=== PATIENT | female | born 1975 | race Caucasian/White ===

== ENCOUNTER 2018-07-11 10:34 | Emergency (ER) | payer OTHER ==
[2018-07-11 10:50] VITALS: BMI 25.4
--- NOTE | 2018-07-11 11:05 | PDOC ---
History of Present Illness - General Chief Complaint: Pain, Acute Stated Complaint: ABD PAIN Time Seen by Provider: 07/11/18 10:55 History Source: Patient - History of Present Illness Timing/Duration: other Severity: moderate Associated Symptoms: reports: chest pain. denies: cough, diaphoresis, fever/ chills, nausea/vomiting, shortness of breath Past History - Past Medical History Allergies/Adverse Reactions: Allergies Allergy/AdvReac Type Severity Reaction Status Date / Time No Known Allergies Allergy Verified 07/11/18 10:47 COPD: No HTN: Yes - Surgical History Lung Surgery: No - Immunization History Immunization Up to Date: No - Suicide/Smoking/Psychosocial Hx Smoking History: Never smoked Have you smoked in the past 12 months: No Information on smoking cessation initiated: No Hx Alcohol Use: No Drug/Substance Use Hx: No Review of Systems - Review of Systems Constitutional: No: Chills, Fever Respiratory: No: Cough, Shortness of Breath Cardiac (ROS): Yes: Chest Pain ABD/GI: Yes: Nausea. No: Vomiting, Abdominal cramping Musculoskeletal: Yes: Back Pain. No: Neck Pain *Physical Exam - Vital Signs Last Vital Signs Temp Pulse Resp BP Pulse Ox 98.0 F 74 18 168/87 100 07/11/18 10:47 07/11/18 10:47 07/11/18 10:47 07/11/18 10:47 07/11/18 10:47 - Physical Exam General Appearance: Yes: Appropriately Dressed. No: Apparent Distress HEENT: positive: Normal Voice Neck: positive: Supple Respiratory/Chest: positive: Lungs Clear, Normal Breath Sounds. negative: Respiratory Distress Cardiovascular: positive: Regular Rate, S1, S2 Gastrointestinal/Abdominal: positive: Soft. negative: Tender Musculoskeletal: negative: Vertebral Tenderness Extremity: positive: Normal Inspection Integumentary: positive: Dry, Warm Neurologic: positive: Fully Oriented, Alert, Normal Mood/Affect Moderate Sedation - Procedure Monitoring Vital Signs: Procedure Monitoring Vital Signs Temperature 98.0 F 07/11/18 10:47 Pulse Rate 74 07/11/18 10:47 Respiratory Rate 18 07/11/18 10:47 Blood Pressure 168/87 07/11/18 10:47 O2 Sat by Pulse Oximetry (%) 100 07/11/18 10:47 ED Treatment Course - LABORATORY CBC & Chemistry Diagram: 07/11/18 11:24 07/11/18 11:24 Medical Decision Making - Medical Decision Making 07/11/18 11:03 42 yo F, h/o NIDDM, here w/ upper back pain radiating to L chest x 3 days, describes as "pulsating", constant, worse w/ certain movement. + nausea, no vomiting, sob, diaphoresis, palpitations, leg pain or swelling. No h/o similar pain. No trauma or other inciting factors. See exam Atypical CP Unlikely ACS, dissection and no RF for DVT/PE, possible MSK -ekg -cxr -labs -anticipate dispo if w/u neg 07/11/18 13:54 Labs only remarkable for BG of 319, no gap. Pt reports compliance w/ her metformin. Asymptomatic from a BG standpoint and denies any chest pain at this time. EKG and CXR unremarkable. Trop neg, no need for serial trop given duration of sxs. Pt reports that she currently has no insurance and no PMD. Given f/u at [facility] this week. Reasons to return d/w pt *DC/Admit/Observation/Transfer Diagnosis at time of Disposition: Atypical chest pain, Hyperglycemia - Discharge Dispostion Disposition: HOME Condition at time of disposition: Stable - Referrals - Patient Instructions Printed Discharge Instructions: DI for Atypical Chest Pain, DI for Hyperglycemia -- Adult Additional Instructions: [place] EKG, radiografa de trax y laboratorios greg normales aqu. La causa de bea[place] dolor puede ser muscular, jerzy yogi debe hacer un seguimiento con bea[place] PMD para guillermo evaluacin adicional. Puede intentar emely Tylenol para el dolor segn sea necesario Tu azcar en la isabel era 319 hoy. Contine tomando kev medicamentos, jerzy contine con el seguimiento en [facility] al [phone] esta semana para un mejor control de beavers diabetes Print Language: WELSH - Post Discharge Activity
[2018-07-11 11:34] LABS: BASO % 0.5 % (0-2.0); EOS % 1.4 % (0-4.5); HEMATOCRIT 37.6 % (32.4-45.2); HEMOGLOBIN 13.4 GM/dL (10.7-15.3); MCH 31.5 pg (25.7-33.7); MCHC 35.6 g/dl (32.0-36.0); MEAN CELL VOLUME 88.4 fl (80-96); MEAN PLT VOLUME 8.5 fl (7.5-11.1); MONO % 5.8 % (3.8-10.2); NEUT % 56.3 % (42.8-82.8); PLATELET COUNT 269 K/MM3 (134-434); RBC 4.25 M/mm3 (3.60-5.2); RDW 13.7 % (11.6-15.6); WHITE BLOOD COUNT 9.1 K/mm3 (4.0-10.0)
[2018-07-11 11:42] LABS: URINE APPEARANCE CLEAR; URINE BILIRUBIN NEGATIVE (<2.0 mg/dL); URINE COLOR LTYELLOW; URINE GLUCOSE (UA) 3+ (NEGATIVE); URINE KETONE NEGATIVE (NEGATIVE); URINE LEUK ESTERASE NEGATIVE (NEGATIVE); URINE NITRITE NEGATIVE (NEGATIVE); URINE PROTEIN NEGATIVE (NEGATIVE); URINE UROBILINOGEN NEGATIVE mg/dL (0.2-1.0)
[2018-07-11 12:35] LABS: ALBUMIN 3.6 g/dl (3.4-5.0); ALK PHOS 129 U/L (45-117); ANION GAP 6 MMOL/L (8-16); BILIRUBIN,TOTAL 0.3 mg/dL (0.2-1); BLOOD UREA NITROGEN 11 mg/dL (7-18); CALCIUM 8.6 mg/dL (8.5-10.1); CHLORIDE 104 mmol/L (98-107); CO2 25 mmol/L (21-32); CREATININE 0.7 mg/dL (0.55-1.3); N-TERMINAL BNP 140.8 pg/ml (5-125); POTASSIUM 4.2 mmol/L (3.5-5.1); SGOT/AST 17 U/L (15-37); SGPT/ALT 18 U/L (13-61); SODIUM 135 mmol/L (136-145); TOT PROT 7.3 g/dl (6.4-8.2)
[2018-07-11 12:54] LABS: GLUCOSE,RANDOM 319 mg/dL (74-106)
[2018-07-11 14:43] VITALS: BP 130/59; PULSE 89; TEMP 98.2
--- NOTE | 2018-07-11 14:44 | EKG ---
Test Reason : Blood Pressure : / mmHG Vent. Rate : 070 BPM Atrial Rate : 070 BPM P-R Int : 148 ms QRS Dur : 090 ms QT Int : 392 ms P-R-T Axes : 023 -01 011 degrees QTc Int : 423 ms NORMAL SINUS RHYTHM LOW VOLTAGE QRS BORDERLINE ECG NO PREVIOUS ECGS AVAILABLE Confirmed by TIFFANY FORBES MD ([id number]) on 07/11/2018 2:44:25 PM Referred By: Confirmed By:TIFFANY FORBES MD
== END 2018-07-11 14:43 | disposition home or self-care (01) ==
LOC: JER 10:34
DX: R07.89 Other chest pain (principal); E11.65 Type 2 diabetes mellitus with hyperglycemia; I10 Essential (primary) hypertension
CPT/HCPCS: 36415; 71046-TC-FY; 80053; 81003; 82550; 83880; 84484; 84703; 85025; 93005; 93010; 99282-25

== ENCOUNTER 2018-09-01 09:53 | Emergency (ER) | payer OTHER ==
[2018-09-01 10:08] VITALS: BP 150/83; PULSE 72; TEMP 98.3; BMI 28.2
--- NOTE | 2018-09-01 10:56 | PDOC ---
History of Present Illness - General Chief Complaint: Eye Problem Stated Complaint: PINK EYE Time Seen by Provider: 09/01/18 10:39 History Source: Patient, Software Lead Used (#[id number]) - History of Present Illness Initial Comments: 09/01/18 11:00 Patient with history of diabetes present with complaint of three-day history of nasal congestion and bilateral pinkeye with pain in bilateral eyes which has not been improving with [id number] eyedrops. Patient also reports sinus pains. Patient denies fever, chills, blurry vision or change in vision. Timing/Duration: other (3 days) Past History - Past Medical History Allergies/Adverse Reactions: Allergies Allergy/AdvReac Type Severity Reaction Status Date / Time No Known Allergies Allergy Verified 07/11/18 10:47 Home Medications: Ambulatory Orders metFORMIN HCL [Metformin HCl ER] 1,000 mg PO DAILY 07/11/18 Loratadine 10 mg PO DAILY #10 capsule 09/01/18 Ofloxacin 0.3% Ophth Soln [Ocuflox -] 2 drop OP Q6H 5 Days #1 bottle 09/01/18 Triamcinolone Acetonide [Nasacort] 2 spray NS BID PRN #1 spray 09/01/18 COPD: No HTN: Yes - Surgical History Lung Surgery: No - Immunization History Immunization Up to Date: No - Suicide/Smoking/Psychosocial Hx Smoking History: Never smoked Have you smoked in the past 12 months: No Hx Alcohol Use: No Drug/Substance Use Hx: No Review of Systems - Review of Systems Able to Perform ROS?: Yes Is the patient limited Swiss proficient: No Constitutional: No: Chills, Fever, Malaise, Weakness HEENTM: Yes: Symptoms Reported, See HPI, Eye Pain (b/l eyes), Nose Congestion. No: Blurred Vision, Tearing, Recent change in vision, Double Vision, Cataracts, Ear Pain, Ocular Prothesis, Ear Discharge, Nose Pain, Tinnitus, Nose Bleeding, Hearing Loss, Throat Pain, Throat Swelling, Mouth Pain, Dental Problems, Difficulty Swallowing, Mouth Swelling, Other Respiratory: No: Symptoms reported, See HPI, Cough, Orthopnea, Shortness of Breath, SOB with Exertion, SOB at Rest, Stridor, Wheezing, Productive cough, Hemoptysis, Other Cardiac (ROS): No: Symptoms Reported, See HPI, Chest Pain, Edema, Irregular Heart Rate, Lightheadedness, Palpitations, Syncope, Chest Tightness, Other ABD/GI: No: Constipated, Diarrhea, Nausea, Vomiting, Abdominal cramping Neurological: No: Headache, Numbness, Paresthesia, Dizziness All Other Systems: Reviewed and Negative *Physical Exam - Vital Signs Last Vital Signs Temp Pulse Resp BP Pulse Ox 98.3 F 72 16 150/83 99 09/01/18 10:05 09/01/18 10:05 09/01/18 10:05 09/01/18 10:05 09/01/18 10:05 - Physical Exam Comments: 09/01/18 11:02 GENERAL: Well developed, well nourished. Awake and alert. No acute distress. HEENT: Mildly injected bilateral conjunctivae. Normocephalic, atraumatic. PERRLA , EOMI. Sclera are non-icteric. Moist mucous membranes. Oropharynx is clear. NECK: Supple. Full ROM. CARDIOVASCULAR: Regular rate and rhythm. No murmurs, rubs, or gallops. Distal pulses are 2+ and symmetric. PULMONARY: No evidence of respiratory distress. Lungs clear to auscultation bilaterally. No wheezing, rales or rhonchi. ABDOMINAL: Soft. Non-tender. Non-distended. No rebound or guarding. No organomegaly. Normoactive bowel sounds. MUSCULOSKELETAL Normal range of motion at all joints. SKIN: Warm and dry. Normal capillary refill. No rashes. No jaundice. NEUROLOGICAL: Alert, awake, appropriate. Gait is normal without ataxia. PSYCHIATRIC: Cooperative. Good eye contact. Appropriate mood General Appearance: Yes: Nourished, Appropriately Dressed. No: Apparent Distress Moderate Sedation - Procedure Monitoring Vital Signs: Procedure Monitoring Vital Signs Temperature 98.3 F 09/01/18 10:05 Pulse Rate 72 09/01/18 10:05 Respiratory Rate 16 09/01/18 10:05 Blood Pressure 150/83 09/01/18 10:05 O2 Sat by Pulse Oximetry (%) 99 09/01/18 10:05 Medical Decision Making - Medical Decision Making 09/01/18 11:03 Patient with history of diabetes present with complaint of three-day history of bilateral pinkeye, nasal congestion and sinus pains. Exam significant for mildly injected bilateral conjunctivae are clear. Pupils reflective to light bilateral and equal. Patient also with nasal congestion bilateral. Symptoms likely sinusitis was conjunctivitis. Patient is stable for outpatient management for sinusitis with nasal spray and ofloxacin eyedrops for conjunctivitis with ophthalmology follow-up. *DC/Admit/Observation/Transfer Diagnosis at time of Disposition: Sinusitis Qualifiers: Sinusitis location: unspecified location Chronicity: acute Recurrence: non- recurrent Qualified Code(s): J01.90 - Acute sinusitis, unspecified Conjunctivitis Qualifiers: Conjunctivitis type: acute Acute conjunctivitis type: unspecified Laterality: bilateral Qualified Code(s): H10.33 - Unspecified acute conjunctivitis, bilateral - Discharge Dispostion Disposition: HOME Condition at time of disposition: Stable Decision to Admit order: No - Prescriptions Prescriptions: Loratadine 10 mg PO DAILY #10 capsule Ofloxacin 0.3% Ophth Soln [Ocuflox -] 2 drop OP Q6H 5 Days #1 bottle Triamcinolone Acetonide [Nasacort] 2 spray NS BID PRN #1 spray PRN Reason: nasal congestion - Referrals Referrals: Kelechi Grace MD [Staff Physician] - - Patient Instructions Printed Discharge Instructions: Sinusitis, Conjunctivitis Additional Instructions: Take medications as prescribed. Increase fluid intake. Follow-up referred ophthalmology if no improvement in 3 days. Print Language: TURKMEN - Post Discharge Activity
== END 2018-09-01 11:01 | disposition home or self-care (01) ==
LOC: JERFT 09:53
DX: J01.90 Acute sinusitis, unspecified (principal); H10.33 Unspecified acute conjunctivitis, bilateral
CPT/HCPCS: 99281-25

== ENCOUNTER 2019-08-24 16:40 | Emergency (ER) | payer OTHER ==
[2019-08-24] MEDS ORDERED: IBUPROFEN 600 MG TABLET (FP) PO ONE ×2 (16:53→17:00)
[2019-08-24 17:02] VITALS: BP 173/90; PULSE 89; TEMP 98.5; BMI 38.7
[2019-08-24 17:02] LABS: EPITHELIAL CELLS FEW /hpf
--- NOTE | 2019-08-24 17:08 | PDOC ---
Attending Attestation - Resident Resident Name: Karol Lockett - ED Attending Attestation I have performed the following: I have examined & evaluated the patient, The case was reviewed & discussed with the resident, I agree w/resident's findings & plan, Exceptions are as noted - HPI HPI: 08/24/19 18:02 Pain in the left rib cage, posterior, lateral, and anterior costal margins. No respiratory or cardiac symptoms. No injury. No recent URI/cough - Physicial Exam PE: 08/24/19 18:03 PE: Normal vital signs Tenderness along the costal margin, left lower chest, and left flank. No omid CVAT. No abdominal tenderness - Medical Decision Making 08/24/19 18:04 Assessment: EKG, chest x-ray, CBC, chemistries, cardiac enzymes negative. Most likely musculoskeletal/costochondritis Plan: Symptomatic treatment with anti-inflammatories and muscle relaxant, rest and ice, follow-up primary physician, return to ER if symptoms worsen. Fully ambulatory in no distress at discharge
[2019-08-24 17:30] LABS: BASO % 0.7 % (0-2.0); EOS % 2.1 % (0-4.5); HEMATOCRIT 36.8 % (32.4-45.2); HEMOGLOBIN 12.5 GM/dl (10.7-15.3); LYMPH % 37.9 % (8-40); MCH 30.9 pg (25.7-33.7); MCHC 33.9 g/dl (32.0-36.0); MEAN CELL VOLUME 91.3 fl (80-96); MEAN PLT VOLUME 8.9 fl (7.5-11.1); NEUT % 54.3 % (42.8-82.8); PLATELET COUNT 256 K/MM3 (134-434); RBC 4.03 M/mm3 (3.60-5.2); RDW 12.6 % (11.6-15.6); WHITE BLOOD COUNT 9.3 K/mm3 (4.0-10.8)
--- NOTE | 2019-08-24 17:34 | PDOC ---
History of Present Illness - General Chief Complaint: Pain, Acute Stated Complaint: FLANK PAIN Time Seen by Provider: 08/24/19 16:41 History Source: Patient Exam Limitations: No Limitations - History of Present Illness Initial Comments: 08/24/19 17:34 43y F with PMH of DM, HTN presenting to ER with complaints of L sided rib/flank pain that started 3 days ago. Pt states that she woke up with the pain. The pain is worse with palpation and movement. Also endorses pain with deep inspiration. She also states that she has been feeling more short of breath when exerting herself. Denies injuries, history of [place], smoking, recent travel, recent surgeries, leg swelling, orthopnea, headache, recent illnesses, cold like symptoms, neck pain, rash. She took 1 Advil yesterday and the day before which helped but the pain returned. PMD: none PSH: none PMH: see hpi Meds: see med rec Allergies: nkda Past History - Past Medical History Allergies/Adverse Reactions: Allergies Allergy/AdvReac Type Severity Reaction Status Date / Time No Known Allergies Allergy Verified 07/11/18 10:47 Home Medications: Ambulatory Orders metFORMIN HCL [Metformin HCl ER] 1,000 mg PO BID 07/11/18 Cyclobenzaprine HCl [Flexeril -] 10 mg PO HS #7 tablet 08/24/19 Naproxen 500 mg PO BID #14 tablet 08/24/19 COPD: No Diabetes: Yes HTN: Yes - Surgical History Lung Surgery: No - Immunization History Immunization Up to Date: No - Psycho Social/Smoking Cessation Hx Smoking History: Never smoked Have you smoked in the past 12 months: No Hx Alcohol Use: No Drug/Substance Use Hx: No Review of Systems - Review of Systems Constitutional: No: Symptoms Reported HEENTM: No: Symptoms Reported Respiratory: Yes: See HPI Cardiac (ROS): Yes: See HPI ABD/GI: No: Symptoms Reported : No: Symptoms Reported Musculoskeletal: Yes: See HPI Integumentary: No: Symptoms Reported Neurological: No: Symptoms reported *Physical Exam - Vital Signs Last Vital Signs Temp Pulse Resp BP Pulse Ox 98.5 F 89 16 173/90 H 100 08/24/19 16:41 08/24/19 16:41 08/24/19 16:41 08/24/19 16:41 08/24/19 16:41 - Physical Exam General Appearance: Yes: Nourished, Appropriately Dressed. No: Apparent Distress HEENT: positive: EOMI, ANNAMARIE, Normal ENT Inspection Neck: positive: Trachea midline, Supple. negative: Lymphadenopathy (R), Lymphadenopathy (L) Respiratory/Chest: positive: Chest Tender, Lungs Clear. negative: Accessory Muscle Use, Crackles, Rales, Rhonchi, Stridor, Wheezing Cardiovascular: positive: Regular Rhythm, Regular Rate, S1, S2 Gastrointestinal/Abdominal: positive: Normal Bowel Sounds, Soft. negative: Tender Musculoskeletal: positive: Normal Inspection. negative: CVA Tenderness, Muscle Spasm, Vertebral Tenderness Extremity: positive: Normal Capillary Refill. negative: Tender, Pedal Edema, Swelling Integumentary: positive: Normal Color, Dry, Warm. negative: Rash Neurologic: positive: mandrel press hand II-XII NML intact, Fully Oriented, Alert, Normal Mood/ Affect, Normal Response, Motor Strength 5/5 ED Treatment Course - LABORATORY CBC & Chemistry Diagram: 08/24/19 17:05 08/24/19 17:05 - ADDITIONAL ORDERS Additional order review: Laboratory Results 08/24/19 16:45 Urine Color Yellow Urine Appearance Clear Urine pH 5.0 Urine Protein 1+ H Urine Glucose (UA) 2+ H Urine Ketones Trace Urine Blood 3+ H Urine Nitrite Negative Urine Bilirubin Negative Urine Urobilinogen 0.2 Ur Leukocyte Esterase Negative Urine RBC >100 Urine WBC 0-2 Ur Transition Epith Cell Few Urine Bacteria Few 08/24/19 17:05 RBC 4.03 MCV 91.3 MCHC 33.9 RDW 12.6 MPV 8.9 Neutrophils % 54.3 Lymphocytes % 37.9 Monocytes % 5.0 Eosinophils % 2.1 Basophils % 0.7 - RADIOLOGY Radiology Studies Ordered: Category Date Time Status CHEST PA & LAT [RAD] Stat Radiology 08/24/19 17:00 Taken - Medications Given in the ED: ED Medications Discontinued Medications Generic Name Dose Route Start Last Admin Trade Name Freq PRN Reason Stop Dose Admin Ibuprofen 600 mg 08/24/19 16:53 08/24/19 17:01 Motrin - PO 08/24/19 16:54 600 mg ONCE ONE Administration Medical Decision Making - Medical Decision Making 08/24/19 18:54 43y F with DM presenting to ED with chest pain. pain is reproducible with extremity movements and with palpation. suspect costochondritis. -cbc, cmp, trop, ekg, cxr ekg: nsr, normal intervals, normal axis. labs wnl, negative trop. ibuprofen given. rx for naproxen, flexeril referral to [facility] given. dispo home Discharge - Discharge Information Problems reviewed: Yes Clinical Impression/Diagnosis: Costochondral pain Condition: Good Disposition: HOME - Admission No - Additional Discharge Information Prescriptions: Cyclobenzaprine HCl [Flexeril -] 10 mg PO HS #7 tablet Naproxen 500 mg PO BID #14 tablet - Follow up/Referral Referrals: [facility] [place] [facility] [place] [Provider Group] - Patient Discharge Instructions Patient Printed Discharge Instructions: DI for Costochondritis Additional Instructions: Usted fue visto en la jewels de emergencias por dolor en el pecho / espalda superior. La radiografa es normal y el anlisis de isabel es normal. Citlalli es el dolor musculoesqueltico ms probable. Se envi a [place] farmacia guillermo receta para el naproxeno (MARCELLO) y un relajante muscular. El relajante muscular puede hacerte sentir cansado, solo tmalo antes de acostarte. A continuacin se proporciona guillermo derivacin a guillermo clnica de medicina interna. Llame para hacer guillermo tariq. Regrese a la jewels de emergencias si tiene un empeoramiento del dolor, dificultad para respirar o si se desarrolla algn sntoma nuevo o preocupante. Ron You were seen in the ER for chest/upper back pain. The xray is normal and the blood work is normal. This is most likley musculoskeletal pain. A prescripton for Naproxen (NSAID) and a muscle relaxant was sent to your pharmacy. The muscle relaxant can make you feel tired, only take at bedtime. A referral to an internal medicine clinic is provided below. Call to make an appointment. Come back to the ER if you have worsening pain, have difficulty breathing or if any new or concerning symptom develops. Thank you Print Language: CITIZEN OF [place] - Post Discharge Activity
[2019-08-24 17:36] LABS: ALBUMIN 3.6 g/dl (3.4-5.0); BILIRUBIN,TOTAL 0.3 mg/dl (0.2-1); CALCIUM 8.6 mg/dl (8.5-10); CREATININE 0.9 mg/dl (0.55-1.3); POTASSIUM 3.9 mmol/L (3.5-5.1); TOT PROT 6.9 g/dl (6.4-8.2)
--- NOTE | 2019-08-25 10:47 | EKG ---
Test Reason : Blood Pressure : / mmHG Vent. Rate : 079 BPM Atrial Rate : 079 BPM P-R Int : 140 ms QRS Dur : 086 ms QT Int : 372 ms P-R-T Axes : 034 -03 000 degrees QTc Int : 426 ms NORMAL SINUS RHYTHM WHEN COMPARED WITH ECG OF 11-JUL-2018 12:05, NO SIGNIFICANT CHANGE WAS FOUND Confirmed by SUNNI BRAGG MD ([id number]) on 08/25/2019 10:47:15 AM Referred By: DR TORREZ Confirmed By:SUNNI BRAGG MD
== END 2019-08-24 18:22 | disposition home or self-care (01) ==
LOC: FER 16:40
DX: R07.82 Intercostal pain (principal); I10 Essential (primary) hypertension; E11.9 Type 2 diabetes mellitus without complications; Z79.84 Long term (current) use of oral hypoglycemic drugs
CPT/HCPCS: 36415; 71046-TC-FY; 80053; 81003; 81015; 84484; 85025; 87086; 93005; 99285-25

== ENCOUNTER 2020-05-21 15:41 | Emergency (ER) | payer OTHER ==
[2020-05-21 15:57] VITALS: BP 151/90; PULSE 81; TEMP 98.6; BMI 38.4
[2020-05-21] MEDS ORDERED: IBUPROFEN 400 MG TABLET (FP) PO ONE ×2 (16:27→16:38)
== END 2020-05-21 17:50 | disposition home or self-care (01) ==
LOC: FER 15:41
DX: E11.65 Type 2 diabetes mellitus with hyperglycemia (principal); M25.512 Pain in left shoulder
CPT/HCPCS: 73030-TC-LT-FY; 82962; 93005; 99285-25

== ENCOUNTER 2021-02-20 10:18 | Emergency (ER) | payer OTHER ==
[2021-02-20 10:33] VITALS: BP 162/93; PULSE 80; TEMP 98.6; BMI 36.3
== END 2021-02-20 11:00 | disposition home or self-care (01) ==
LOC: FER 10:18
DX: L03.116 Cellulitis of left lower limb (principal)
CPT/HCPCS: 99283-25

== ENCOUNTER 2021-06-06 18:35 | Emergency (ER) | payer OTHER ==
[2021-06-06 18:48] VITALS: BP 160/95; PULSE 84; TEMP 97.8; BMI 37.0
[2021-06-06 19:37] LABS: HCG,QUALITATIVE URINE Negative
[2021-06-06] MEDS ORDERED: SODIUM CHLORIDE 1,000 ML IV STA (20:00)
[2021-06-06] MEDS ORDERED: ACETAMINOPHEN 1000 MG/100 ML VIAL IVPB ONE (20:01)
[2021-06-06] MEDS ORDERED: ACETAMINOPHEN INJECTION 100 ML IVPB ONE (20:11)
[2021-06-06 20:35] LABS: ALBUMIN 3.7 g/dl (3.4-5.0); BILIRUBIN,TOTAL 0.5 mg/dl (0.2-1); CALCIUM 8.9 mg/dl (8.5-10); CREATININE 0.7 mg/dl (0.55-1.3); TOT PROT 6.8 g/dl (6.4-8.2)
[2021-06-06 21:53] LABS: BASO % 0.6 % (0-2.0); EOS % 2.7 % (0-4.5); HEMATOCRIT 34.1 % (32.4-45.2); HEMOGLOBIN 11.8 GM/dL (10.7-15.3); LYMPH % 44.7 % (8-40); MCH 31.2 pg (25.7-33.7); MCHC 34.5 g/dl (32.0-36.0); MEAN CELL VOLUME 90.6 fl (80-96); MEAN PLT VOLUME 8.3 fl (7.5-11.1); MONO % 6.7 % (3.8-10.2); NEUT % 45.3 % (42.8-82.8); PLATELET COUNT 233 10^3/uL (134-434); RBC 3.77 M/mm3 (3.60-5.2); RDW 13.2 % (11.6-15.6); WHITE BLOOD COUNT 9.1 K/mm3 (4.0-10.0)
== END 2021-06-06 22:46 | disposition home or self-care (01) ==
LOC: FER 18:35
PROC: 3E033GC Introduction of Other Therapeutic Substance into Peripheral Vein, Percutaneous Approach (ICD-10-PCS; principal; 2021-06-06)
DX: S39.011A Strain of muscle, fascia and tendon of abdomen, initial encounter (principal); Y99.9 Unspecified external cause status
CPT/HCPCS: 36415; 74177-TC; 80053; 81003; 83690; 84703; 85025; 96361; 96374; 99285-25; J0131; Q9967

== ENCOUNTER 2021-11-15 14:12 | Emergency (ER) | payer OTHER ==
[2021-11-15 14:35] VITALS: BP 143/75; PULSE 68; TEMP 98.5; BMI 37.5
[2021-11-15] MEDS ORDERED: MAG HYDROX/AL HYDROX/SIMETH -MYLANTA- ORAL SUSPENSION PO ONE (14:38)
[2021-11-15] MEDS ORDERED: FAMOTIDINE 20 MG/50 ML IVPB 20 MG in PREMIX 50 IVPB ONE (14:38)
[2021-11-15] MEDS ORDERED: ACETAMINOPHEN 1000 MG/100 ML BAG IVPB ONE (14:38)
[2021-11-15] MEDS ORDERED: MOXIFLOXACIN HCL 0.5% OPHTHALMIC 3 ML BOTTLE OS SCH (14:45)
[2021-11-15] MEDS ORDERED: MAG HYDROX/AL HYDROX/SIMETH 30 ML UNIT-DOSE CUP ONE (15:07)
[2021-11-15] MEDS ORDERED: ACETAMINOPHEN INJECTION 100 ML IVPB ONE (15:07)
[2021-11-15] MEDS ORDERED: FAMOTIDINE 20 MG/50 ML IVPB 20 MG/50 ML MG IVPB ONE (15:07)
[2021-11-15 16:11] LABS: HEMATOCRIT 38.5 % (32.4-45.2); HEMOGLOBIN 13.3 G/dL (10.7-15.3); MCH 31.5 pg (25.7-33.7); MCHC 34.6 g/dl (32.0-36.0); MEAN CELL VOLUME 91.1 fl (80-96); MEAN PLT VOLUME 8.1 fl (7.5-11.1); RBC 4.23 10^6/uL (3.60-5.2); RDW 13.7 % (11.6-15.6); WHITE BLOOD COUNT 11.7 10^3/uL (4.0-10.8)
[2021-11-15 16:13] LABS: ALBUMIN 3.4 g/dl (3.4-5.0); BILIRUBIN,TOTAL 0.7 mg/dl (0.2-1); CREATININE 0.6 mg/dl (0.55-1.3); TOT PROT 6.9 g/dl (6.4-8.2)
[2021-11-15 16:17] LABS: HCG,QUALITATIVE URINE Negative
[2021-11-15 17:23] LABS: EPITHELIAL CELLS MODERATE /hpf
== END 2021-11-15 20:00 | disposition home or self-care (01) ==
LOC: FER 14:12
PROC: 3E0333Z Introduction of Anti-inflammatory into Peripheral Vein, Percutaneous Approach (ICD-10-PCS; principal; 2021-11-15)
PROC: 3E033GC Introduction of Other Therapeutic Substance into Peripheral Vein, Percutaneous Approach (ICD-10-PCS; 2021-11-15)
DX: H10.32 Unspecified acute conjunctivitis, left eye (principal); R10.9 Unspecified abdominal pain
CPT/HCPCS: 36415; 71045-TC-FY; 74177-TC; 80053; 81003; 81015; 83690; 84484; 84703; 85027; 93005; 96374; 96375; 99285-25; Q9967

== ENCOUNTER 2022-03-17 10:18 | Emergency (ER) | payer OTHER ==
[2022-03-17 10:24] VITALS: BP 156/82; PULSE 73; RESP 18; TEMP 97.5; BMI 39.3
[2022-03-17] MEDS ORDERED: IBUPROFEN 400 MG TABLET (FP) PO ONE ×2 (10:55→11:01)
[2022-03-17] MEDS ORDERED: LIDOCAINE 5% TOPICAL PATCH TP ONE (11:40)
[2022-03-17] MEDS ORDERED: LIDOCAINE 5% TOPICAL PATCH ONE (11:41)
[2022-03-17] MEDS ORDERED: LIDOCAINE PATCH REMOVAL MC SCH (22:00)
== END 2022-03-17 12:15 | disposition home or self-care (01) ==
LOC: FER 10:18
DX: M54.50 Low back pain, unspecified (principal)
CPT/HCPCS: 81003; 81025; 87086; 99283-25

== ENCOUNTER 2022-04-07 13:16 | Emergency (ER) | payer OTHER ==
[2022-04-07 13:30] VITALS: BP 146/87; PULSE 81; RESP 20; TEMP 98.3; BMI 37.5
[2022-04-07] MEDS ORDERED: SODIUM CHLORIDE 500 ML IV STA (16:00)
[2022-04-07] MEDS ORDERED: FAMOTIDINE 20 MG/50 ML IVPB 20 MG/50 ML MG IVPB ONE ×2 (16:00→16:30)
[2022-04-07] MEDS ORDERED: ONDANSETRON 4 MG/2 ML VIAL IVPUSH ONE (16:00)
[2022-04-07 16:22] LABS: EPI CELLS 27 /uL (0-25.1); HYALINE CASTS 1 /uL (0-3.1); URINE APPEARANCE CLEAR; URINE BACTERIA 254 /uL (0-1359); URINE BILIRUBIN NEGATIVE (NEGATIVE); URINE COLOR YELLOW; URINE GLUCOSE (UA) 3+ (NEGATIVE); URINE KETONE TRACE (NEGATIVE); URINE LEUK ESTERASE NEGATIVE (NEGATIVE); URINE NITRITE NEGATIVE (NEGATIVE); URINE PROTEIN NEGATIVE (NEGATIVE); URINE RBC 15 /uL (0-23.9); URINE WBC 9 /uL (0-25.8)
[2022-04-07] MEDS ORDERED: ONDANSETRON 4 MG/2 ML VIAL ONE (16:30)
[2022-04-07 17:25] LABS: BASO % 0.5 % (0-2.0); EOS % 2.3 % (0-4.5); HEMATOCRIT 39.4 % (32.4-45.2); HEMOGLOBIN 13.5 GM/dL (10.7-15.3); MCH 30.7 pg (25.7-33.7); MCHC 34.2 g/dl (32.0-36.0); MEAN CELL VOLUME 89.9 fl (80-96); MEAN PLT VOLUME 8.3 fl (7.5-11.1); MONO % 5.4 % (3.8-10.2); NEUT % 52.8 % (42.8-82.8); PLATELET COUNT 283 10^3/uL (134-434); RBC 4.38 M/mm3 (3.60-5.2); RDW 13.5 % (11.6-15.6); WHITE BLOOD COUNT 9.5 K/mm3 (4.0-10.0)
[2022-04-07 17:36] LABS: ALBUMIN 3.6 g/dl (3.4-5.0); CALCIUM 9.3 mg/dL (8.5-10.1)
[2022-04-07 17:37] LABS: BLOOD UREA NITROGEN 16.6 mg/dL (7-18)
[2022-04-07 17:39] LABS: CREATININE 0.9 mg/dL (0.55-1.3)
[2022-04-07 17:41] LABS: BILIRUBIN,TOTAL 0.4 mg/dL (0.2-1); TOT PROT 7.6 g/dl (6.4-8.2)
== END 2022-04-07 20:50 | disposition home or self-care (01) ==
LOC: JER 13:16
PROC: 3E033GC Introduction of Other Therapeutic Substance into Peripheral Vein, Percutaneous Approach (ICD-10-PCS; principal; 2022-04-07)
DX: R10.13 Epigastric pain (principal)
CPT/HCPCS: 36415; 74176-TC; 76705-TC; 80053; 81003; 83690; 84703; 85025; 87086; 93005; 93010; 99291